=== PATIENT | male | born 1970 | race Caucasian/White ===

== ENCOUNTER → 2016-10-24 | Outpatient (CLI) | payer BC | LOC: HEART 5 14:00 | DX: M79.605 Pain in left leg (principal) ==

== ENCOUNTER 2020-07-10 18:44 | Emergency (ER) | payer OTHER ==
[~2020-07-10 18:44] MED LIST: AZITHROMYCIN250 MG PO; OMNICEF 300 MG300 MG PO; PREDNISONE 20 M20 MG PO
== END 2020-07-10 19:00 | disposition left against medical advice (07) ==
LOC: ER1 18:44
DX: R11.10 Vomiting, unspecified (principal); Z53.21 Procedure and treatment not carried out due to patient leaving prior to being seen by health care provider

== ENCOUNTER → 2021-01-25 | Outpatient (CLI) | payer OTHER | LOC: HEART 5 14:30 | DX: J84.10 Pulmonary fibrosis, unspecified (principal) | CPT/HCPCS: 94060; 94729 ==

== ENCOUNTER → 2021-06-15 | Outpatient (CLI) | payer OTHER | LOC: EXRD 13:50 | DX: J84.10 Pulmonary fibrosis, unspecified (principal); J18.9 Pneumonia, unspecified organism | CPT/HCPCS: 71046 ==

== ENCOUNTER → 2021-11-11 | Outpatient (CLI) | payer MEDICARE, OTHER ==
[~2021-11-11] MED LIST changes: +LEVOFLOXACIN750 MG PO
== END ==
LOC: HEART 5 12:28
DX: J84.10 Pulmonary fibrosis, unspecified (principal)
CPT/HCPCS: 94060; 94729